=== PATIENT | female | born 1950 | race Caucasian/White ===

== ENCOUNTER 2022-07-17 06:33 | Inpatient (IN) ==
[2022-07-17] MEDS ORDERED: levoFLOXacin 500 MG/100 ML 500 MG/100 ML BAG IVPB ONE (07:01)
[2022-07-17] MEDS ORDERED: Bupivacaine-MPF 0.25% 10 ML VIAL ONE ×2 (07:06→07:09)
[2022-07-17] MEDS ORDERED: Ringers Solution, Lactated 1,000 ML IVC SCH (07:15)
[2022-07-17] MEDS ORDERED: *HR* Rocuronium Bromide 50 MG/5 ML VIAL ONE ×2 (07:28→08:51)
[2022-07-17] MEDS ORDERED: *HR* FentaNYL (PF) 100 MCG/2 ML VIAL ONE (07:28)
[2022-07-17] MEDS ORDERED: *HR* Succinylcholine 200 MG/10 ML VIAL IVP ONE (07:28)
[2022-07-17] MEDS ORDERED: Sugammadex Sodium 200 MG/2 ML VIAL IV ONE ×2 (07:28→09:05)
[2022-07-17] MEDS ORDERED: *HR* Propofol 200 MG/20 ML VIAL IVP ONE (07:28)
[2022-07-17] MEDS ORDERED: Ondansetron 4 MG/2 ML VIAL ONE (07:28)
[2022-07-17] MEDS ORDERED: Heparin 1,000 UNITS/500 mL 500 ML ONE (07:29)
[2022-07-17] MEDS ORDERED: Lidocaine HCL 4 ML Topical Solution (Laryng-O-Jet Kit Sterile Pak) TP ONE (07:30)
[2022-07-17] MEDS ORDERED: EPHEDrine sulfate 50 MG/10 ML VIAL IVP ONE (08:02)
[2022-07-17] MEDS ORDERED: Acetaminophen IV 1,000 MG/100 ML BAG IVPB ONE (08:11)
[2022-07-17] MEDS ORDERED: *HR* HYDROMORPHONE 2 MG/ML VIAL ONE (09:05)
[2022-07-17] MEDS: *HR* HYDROmorphone PF 0.5 MG/0.5 ML SYRINGE IVP PRN ×3 (09:48→10:13)
[2022-07-17] MEDS ORDERED: Naloxone 0.4 MG/ML INJ IVP PRN (11:46)
[2022-07-17] MEDS ORDERED: *HR* HYDROcodone/Acet 5/325 mg TABLET PO PRN (11:46)
[2022-07-17] MEDS ORDERED: *HR* Belladonna Alkaloids/Opium 30 MG RECTAL SUPPOSITORY RC PRN (11:46)
[2022-07-17] MEDS ORDERED: *HR* OxyCODONE Immed Rel 5 MG TABLET PO PRN (11:46)
[2022-07-17] MEDS: 0.9 % Sodium Chloride 1,000 ML IVC SCH (12:19)
[2022-07-17] MEDS: Ondansetron 4 MG/2 ML VIAL IVP PRN ×2 (13:24→21:39)
[2022-07-17] MEDS: Acetaminophen IV 1,000 MG/100 ML BAG IVPB SCH (17:28)
[2022-07-17] MEDS: carvediloL 6.25 MG TABLET PO SCH (17:35)
[2022-07-18] MEDS: Acetaminophen IV 1,000 MG/100 ML BAG IVPB SCH ×3 (00:44→16:29)
[2022-07-18] MEDS ORDERED: hydrALAZINE 10 MG TABLET PO PRN (01:25)
[2022-07-18] MEDS: 0.9 % Sodium Chloride 1,000 ML IVC SCH (02:12)
[2022-07-18 03:18] LABS: Basophils % 0.1 %; Immature Granulocytes % 0.6 % (0-4); Lymphocytes % 6.3 %; Mean Corpuscular HGB Conc 31.4 g/dL (31.6-35.5); Mean Corpuscular Hemoglobin 28.2 pg (28.0-33.3); Mean Corpuscular Volume 89.7 fL (83.0-100.0); Mean Platelet Volume 10.2 fL (9.4-12.4); Monocytes # 0.7 K/mcL (0.0-1.3); Monocytes % 4.2 %; Neutrophils # 14.3 K/mcL (1.6-8.9); Platelet Count 238 K/mcL (140-400); Red Cell Distribution Width 14.1 % (11.5-14.5); Segmented Neutrophils % 88.8 %; White Blood Count 16.1 K/mcL (4.3-11.1)
[2022-07-18 03:43] LABS: Calcium 8.5 mg/dL (8.6-10.3); Potassium 3.9 mEq/L (3.5-5.1)
[2022-07-18] MEDS ORDERED: Ondansetron 4 MG/2 ML VIAL IVP PRN (07:29)
[2022-07-18] MEDS ORDERED: hydroCHLOROthiazide 25 MG TABLET PO SCH (09:00)
[2022-07-18] MEDS: carvediloL 6.25 MG TABLET PO SCH (09:05)
[2022-07-18] MEDS: Gabapentin 300 MG CAPSULE PO SCH ×2 (09:06→09:26)
[2022-07-18 11:54] VITALS: TEMP 98.2
[2022-07-18 15:29] VITALS: BP 164/78; PULSE 56; O2SAT 91
[2022-07-18] MEDS ORDERED: Gabapentin 300 MG CAPSULE PO SCH (21:00)
== END 2022-07-18 17:46 | disposition home health service (06) | DRG 658 ==
LOC: SAMDAY 06:33 → 3ANU 07:18
PROVIDERS: ADMIT Urology; ATTEND Urology